=== PATIENT | female | born 1965 | race Caucasian/White ===

== ENCOUNTER → 2018-01-22 | Outpatient (CLI) | payer MEDICAID ==
[~2018-01-22] MED LIST: CALCIUM PO; FISH OIL PO; MULT-516 PO
[2018-01-22 09:15] LABS: BASOPHILS # (AUTO) 0.02 x10^3/uL (0-0.1); BASOPHILS % (AUTO) 0 % (0-1); EOSINOPHILS # (AUTO) 0.23 x10^3/uL (0-0.4); EOSINOPHILS % (AUTO) 4 % (1-7); LYMPHOCYTES # (AUTO) 1.41 x10^3/uL (1-3.4); LYMPHOCYTES % (AUTO) 24 % (22-44); MD NO; MEAN CORPUSCULAR HEMOGLOBIN 35.1 pg (27.0-34.8); MEAN CORPUSCULAR HGB CONC 34.1 g/dL (32.4-35.8); MEAN CORPUSCULAR VOLUME 102.8 fL (80-100); MEAN PLATELET VOLUME 8.4 fL (7.4-10.4); MONOCYTES # (AUTO) 0.63 x10^3/uL (0.2-0.8); MONOCYTES % (AUTO) 11 % (2-9); NEUTROPHILS # (AUTO) 3.62 x10^3/uL (1.8-6.8); NEUTROPHILS % (AUTO) 61 % (42-75); PLATELET COUNT 141 x10^3/uL (130-400); RED BLOOD COUNT 4.33 x10^6/uL (3.82-5.3)
[2018-01-22 09:25] LABS: INTERNATIONAL NORMALIZED RATIO 1.28 (0.93-1.1)
[2018-01-22 09:29] LABS: ALANINE AMINOTRANSFERASE 56 U/L (12-78); ALBUMIN 3.5 g/dL (3.4-5.0); ANION GAP 8 mmol/L (5-15); CALCIUM 9.1 mg/dL (8.5-10.1); CHLORIDE 105 mmol/L (98-107); CREATININE 0.52 mg/dL (0.55-1.02)
[2018-01-22 09:31] LABS: ALKALINE PHOSPHATASE 179 U/L (45-117); BILIRUBIN,TOTAL 1.9 mg/dL (0.2-1.0); TOTAL PROTEIN 8.6 g/dL (6.4-8.2)
[2018-01-22 09:37] LABS: PROTHROMBIN TIME 13.4 Seconds (9.6-11.5)
== END | disposition home or self-care (01) ==
LOC: STAR 08:06
PROVIDERS: ATTEND Specialist
DX: Z01.818 Encounter for other preprocedural examination (principal); R19.01 Right upper quadrant abdominal swelling, mass and lump
CPT/HCPCS: 36415; 71046; 80053; 85025; 85610; 85730; 86304; 93005

== ENCOUNTER 2018-01-28 13:02 | Day surgery (SDC) | payer MEDICAID ==
[~2018-01-28] VITALS: Ht 162.6 cm; Wt 51.6 kg
[2018-01-28] MEDS ORDERED: LACTATED RINGERS 1,000 ML IV SCH (13:09)
[2018-01-28] MEDS ORDERED: MIDAZOLAM 1 MG/ML, 2ML ONE (13:13)
[2018-01-28] MEDS ORDERED: FENTANYL PF 250 MCG/5ML ONE (13:14)
[2018-01-28] MEDS ORDERED: ROCURONIUM 10MG/ML,5ML ONE (13:17)
[2018-01-28] MEDS ORDERED: DEXAMETHASONE 4 MG/ML, 1ML ONE (13:17)
[2018-01-28] MEDS ORDERED: GLYCOPYRROLATE 0.2MG/1ML, 5ML ONE (13:17)
[2018-01-28] MEDS ORDERED: CEFAZOLIN 1,000 MG ONE (13:17)
[2018-01-28] MEDS ORDERED: PROPOFOL 10 MG/ML, 20ML ONE (13:17)
[2018-01-28] MEDS ORDERED: ONDANSETRON 2MG/ML, 2ML ONE (13:17)
[2018-01-28] MEDS ORDERED: NEOSTIGMINE 1 MG/ML, 10ML ONE (13:17)
[2018-01-28] MEDS ORDERED: GABAPENTIN 300 MG CAPSULE PO ONE (13:30)
[2018-01-28] MEDS ORDERED: ACETAMINOPHEN 500 MG TABLET PO ONE (13:30)
[2018-01-28 13:48] VITALS: BP 132/91
[2018-01-28] MEDS ORDERED: EPINEPHRINE 1 MG/ML, 1ML ONE (14:25)
[2018-01-28] MEDS ORDERED: BUPIVACAINE 0.25% ONE (14:25)
[2018-01-28] MEDS ORDERED: SCOPOLAMINE PATCH, 1.5MG PATCH.TD72 TD ONE (14:41)
[2018-01-28] MEDS ORDERED: HYDROmorphone 2 MG/ML, 1ML IVPush PRN (15:00)
[2018-01-28] MEDS ORDERED: ONDANSETRON ODT 8 MG PO PRN (15:00)
[2018-01-28] MEDS ORDERED: ONDANSETRON 2MG/ML, 2ML IV PRN (15:00)
[2018-01-28] MEDS ORDERED: hydrALAzine 20 MG/ML, 1ML IV PRN (15:00)
[2018-01-28] MEDS ORDERED: PROMETHAZINE 25 MG/ML, 1ML IV PRN (15:00)
[2018-01-28] MEDS ORDERED: MORPHINE SULFATE 4 MG/ML, 1ML IVPush PRN (15:00)
[2018-01-28] MEDS ORDERED: LABETALOL 5MG/ML, 20ML IV PRN (15:00)
[2018-01-28] MEDS ORDERED: OXYcodone 5 MG/5 ML ORAL.SOL UDC PO PRN (15:00)
[2018-01-28] MEDS ORDERED: PROMETHAZINE 12.5 MG SUPP PR PRN (15:00)
[2018-01-28] MEDS ORDERED: MEPERIDINE/PF 25MG/0.5ML IVPush PRN (15:00)
[2018-01-28] MEDS ORDERED: PROMETHAZINE 25 MG SUPP PR PRN (15:00)
[2018-01-28] MEDS ORDERED: PROMETHAZINE 25 MG/ML, 1ML IM PRN ×2 (15:00)
[2018-01-28] MEDS ORDERED: FENTANYL PF 100 MCG/2ML ONE ×2 (15:39→16:37)
[2018-01-28] MEDS ORDERED: OXYcodone 5 MG/5 ML ORAL.SOL UDC ONE (16:37)
[2018-01-28] MEDS: FENTANYL PF 100 MCG/2ML IV PRN ×2 (16:40→17:05)
[2018-01-28] MEDS ORDERED: KETOROLAC 30 MG/1 ML ONE (16:57)
[2018-01-28] MEDS ORDERED: KETOROLAC 30 MG/1 ML IVPush ONE (17:00)
[2018-01-28] MEDS ORDERED: MORPHINE SULFATE 4 MG/ML, 1ML IV PRN (18:30)
[2018-01-28] MEDS ORDERED: ONDANSETRON 2MG/ML, 2ML IVPush PRN (18:30)
[2018-01-28] MEDS ORDERED: METOCLOPRAMIDE 5 MG/ML, 2ML IVPush SCH (18:30)
[2018-01-28] MEDS ORDERED: ONDANSETRON ODT 4 MG PO PRN (18:30)
[2018-01-28] MEDS ORDERED: CALCIUM MC SCH (19:00)
[2018-01-28] MEDS ORDERED: FISH OIL MC SCH (19:00)
[2018-01-28] MEDS ORDERED: OXYcodone/APAP 7.5/325MG TABLET PO PRN (22:00)
[2018-01-28] MEDS ORDERED: KETOROLAC 30 MG/1 ML IVPush PRN (23:00)
[2018-01-29] MEDS ORDERED: MULTIVITAMIN 1 TABLET PO SCH (09:00)
== END 2018-01-28 23:00 | disposition home or self-care (01) ==
LOC: OUT 13:02 → 4NOR 17:51 → OUT 23:00
PROVIDERS: ATTEND Specialist
DX: D27.0 Benign neoplasm of right ovary (principal); Z72.89 Other problems related to lifestyle
CPT/HCPCS: 36415; 58661; 86850; 86900; 88305; J0171; J0690; J1100; J1885; J2250; J2405; J2704; J2710; J2765; J3010; J3490; J7120; S2900; G0378